=== PATIENT | female | born 1935 | race Caucasian/White ===

== ENCOUNTER 2017-03-28 10:40 | Emergency (ER) | payer OTHER ==
[2017-03-28] MEDS: ALBUTEROL 0.083% (NEB) 2.5 MG/3 ML AMP NEB (16:21)
[2017-03-28] MEDS: IPRATROPIUM (NEB) 0.5 MG/2.5 ML AMP NEB (16:21)
[2017-03-28 16:49] LABS: ADD MAN DIFF? NO
[2017-03-28 16:51] LABS: BASOPHIL # 0.1 10^3/ul (0.0-0.1); BASOPHILS % 0.6 % (0.0-2.0); EOSINOPHILS # 0.2 10^3/ul (0.0-0.5); EOSINOPHILS % 1.7 % (0.0-7.0); HEMATOCRIT 43.9 % (37.0-47.0); HEMOGLOBIN 14.3 g/dl (12.0-16.0); LYMPHOCYTES % 22.1 % (15.0-51.0); MEAN CORPUSCULAR HEMOGLOBIN 28.9 pg (29.0-33.0); MEAN CORPUSCULAR HGB CONC 32.6 g/dl (32.0-37.0); MEAN CORPUSCULAR VOLUME 88.7 fl (82.0-101.0); MEAN PLATELET VOLUME 9.8 fl (7.4-10.4); MONOCYTE # 1.3 10^3/ul (0.3-0.9); MONOCYTES % 14.8 % (0.0-11.0); NEUTROPHIL # 5.5 10^3/ul (1.6-7.5); NEUTROPHILS % 60.2 % (39.0-77.0); PLATELET COUNT 316 10^3/UL (140-415); RED BLOOD COUNT 4.95 10^6/ul (4.20-5.40); RED CELL DISTRIBUTION WIDTH 14.5 % (11.5-14.5)
[2017-03-28 16:51] LABS: WHITE BLOOD COUNT 9.1 10^3/ul (4.8-10.8)
[2017-03-28] MEDS: METHYLPREDNISOLONE 125 MG INJ IV (16:51)
[2017-03-28] MEDS: SODIUM CHLORIDE 0.9% 1L BAG IV* (16:52)
[2017-03-28 17:15] LABS: INR 1.06; PARTIAL THROMBOPLASTIN TIME 28.9 Sec (25.0-35.0); PROTIME 13.9 Sec (11.9-14.9); PT RATIO 1.1
[2017-03-28 17:17] LABS: ALANINE AMINOTRANSFERASE 32 IU/L (13-69); ALBUMIN 4.9 g/dl (3.3-4.9); ALBUMIN/GLOBULIN RATIO 1.36; ALKALINE PHOSPHATASE 106 IU/L (42-121); ANION GAP 19 (8-16); ASPARTATE AMINO TRANSFERASE 32 IU/L (15-46); BILIRUBIN,INDIRECT 0.4 mg/dl (0-1.1); BILIRUBIN,TOTAL 0.4 mg/dl (0.2-1.3); BLOOD UREA NITROGEN 18 mg/dl (7-20); CALCIUM 9.9 mg/dl (8.4-10.2); CARBON DIOXIDE 29 mmol/L (21-31); CHLORIDE 98 mmol/L (97-110); CREATININE 0.88 mg/dl (0.44-1.00); GLUCOSE 102 mg/dl (70-220); POTASSIUM 4.4 mmol/L (3.5-5.1); SODIUM 142 mmol/L (135-144); TOTAL PROTEIN 8.5 g/dl (6.1-8.1)
[2017-03-28 17:27] LABS: B-TYPE NATRIURETIC PEPTIDE 2280 PG/ML (0-450); TROPONIN-I 0.015 ng/ml (0.00-0.12)
== END 2017-03-28 17:57 | disposition home or self-care (01) ==
LOC: E/R 10:40
DX: J45.901 Unspecified asthma with (acute) exacerbation (principal); R06.02 Shortness of breath; Z86.79 Personal history of other diseases of the circulatory system
CPT/HCPCS: 36415; 71045; 80053; 83605; 83880; 84484; 85025; 85610; 85730; 87040; 93005; 94664; 96374; 99285-25

== ENCOUNTER 2017-08-27 21:50 | Inpatient (IN) | payer OTHER ==
[2017-08-27] MEDS: SODIUM CHLORIDE 0.9% 1L BAG IV* (23:07)
[2017-08-27] MEDS: ACETAMINOPHEN 325 MG TAB PO (23:08)
[2017-08-27] MEDS: DILTIAZEM 25 MG INJ IV (23:08)
[2017-08-27 23:26] LABS: ADD MAN DIFF? NO
[2017-08-27 23:28] LABS: BASOPHILS % 0.3 % (0.0-2.0); HEMATOCRIT 39.2 % (37.0-47.0); HEMOGLOBIN 13.1 g/dl (12.0-16.0); LYMPHOCYTES # 0.8 10^3/ul (0.8-2.9); LYMPHOCYTES % 6.9 % (15.0-51.0); MEAN CORPUSCULAR HGB CONC 33.4 g/dl (32.0-37.0); MEAN CORPUSCULAR VOLUME 92.7 fl (82.0-101.0); MEAN PLATELET VOLUME 10.2 fl (7.4-10.4); MONOCYTE # 1.4 10^3/ul (0.3-0.9); MONOCYTES % 12.1 % (0.0-11.0); NEUTROPHIL # 9.5 10^3/ul (1.6-7.5); NEUTROPHILS % 80.3 % (39.0-77.0); PLATELET COUNT 229 10^3/UL (140-415); RED BLOOD COUNT 4.23 10^6/ul (4.20-5.40); RED CELL DISTRIBUTION WIDTH 13.8 % (11.5-14.5)
[2017-08-27 23:28] LABS: WHITE BLOOD COUNT 11.9 10^3/ul (4.8-10.8)
[2017-08-27 23:46] LABS: LACTIC ACID 1.5 mmol/L (0.5-2.0)
[2017-08-27 23:48] LABS: ALANINE AMINOTRANSFERASE 38 IU/L (13-69); ALBUMIN 4.1 g/dl (3.3-4.9); ALBUMIN/GLOBULIN RATIO 1.36; ALKALINE PHOSPHATASE 82 IU/L (42-121); ANION GAP 14 (8-16); ASPARTATE AMINO TRANSFERASE 28 IU/L (15-46); BILIRUBIN,INDIRECT 0.8 mg/dl (0-1.1); BILIRUBIN,TOTAL 0.8 mg/dl (0.2-1.3); BLOOD UREA NITROGEN 19 mg/dl (7-20); CALCIUM 9.5 mg/dl (8.4-10.2); CARBON DIOXIDE 24 mmol/L (21-31); CHLORIDE 104 mmol/L (97-110); CREATININE 0.95 mg/dl (0.44-1.00); GLUCOSE 139 mg/dl (70-220); INR 1.19; POTASSIUM 4.5 mmol/L (3.5-5.1); PROTIME 15.3 Sec (11.9-14.9); PT RATIO 1.2; SODIUM 137 mmol/L (135-144); TOTAL PROTEIN 7.1 g/dl (6.1-8.1)
[2017-08-27 23:55] LABS: PARTIAL THROMBOPLASTIN TIME 33.2 Sec (25.0-35.0)
[2017-08-27 23:59] LABS: TROPONIN-I 0.035 ng/ml (0.000-0.120)
[2017-08-28] MEDS: PIPER-TAZO 3.375 GM IV (PMX) 100 ML IVPB ×3 (01:51→18:48)
[2017-08-28] MEDS ORDERED: NITROGLYCERIN (SL) 0.4 MG TAB SL (02:00)
[2017-08-28] MEDS ORDERED: ACETAMINOPHEN 325 MG TAB PO (02:00)
[2017-08-28] MEDS ORDERED: NACL 0.9% 3 ML SYG IV (02:00)
[2017-08-28] MEDS ORDERED: ONDANSETRON 4 MG INJ IV (02:00)
[2017-08-28] MEDS ORDERED: morphine 2 MG INJ IV (02:00)
[2017-08-28] MEDS: metroNIDAZOLE 500 MG/NS (PMX) 100 ML IVPB (02:26)
[2017-08-28 02:42] LABS: ADD UMIC YES; UR ASCORBIC ACID NEGATIVE (NEGATIVE); UR BACTERIA MANY /HPF (NONE SEEN); UR BILIRUBIN (Dip) NEGATIVE (NEGATIVE); UR BLOOD (Dip) 2+ mg/dL (NEGATIVE); UR CLARITY CLEAR (CLEAR); UR COLOR YELLOW (YELLOW); UR GLUCOSE (Dip) NEGATIVE (NEGATIVE); UR KETONES (Dip) NEGATIVE (NEGATIVE); UR LEUKOCYTE ESTERASE (Dip) NEGATIVE Leu/ul (NEGATIVE); UR NITRITE (Dip) POSITIVE (NEGATIVE); UR RBC 2 /HPF (0-5); UR SPECIFIC GRAVITY (Dip) 1.004 (1.003-1.030); UR TOTAL PROTEIN (Dip) NEGATIVE (NEGATIVE); UR UROBILINOGEN (Dip) NEGATIVE (NEGATIVE); UR WBC 3 /HPF (0-5)
[2017-08-28 03:34] LABS: ADD MAN DIFF? NO
[2017-08-28 04:04] LABS: HEMOGLOBIN A1C 5.8 % (0-5.9)
[2017-08-28 04:04] LABS: ALANINE AMINOTRANSFERASE 33 IU/L (13-69); ALBUMIN 3.8 g/dl (3.3-4.9); ALBUMIN/GLOBULIN RATIO 1.31; ALKALINE PHOSPHATASE 68 IU/L (42-121); ANION GAP 10 (8-16); ASPARTATE AMINO TRANSFERASE 25 IU/L (15-46); BILIRUBIN,INDIRECT 0.9 mg/dl (0-1.1); BILIRUBIN,TOTAL 0.9 mg/dl (0.2-1.3); BLOOD UREA NITROGEN 16 mg/dl (7-20); CALCIUM 8.4 mg/dl (8.4-10.2); CARBON DIOXIDE 27 mmol/L (21-31); CHLORIDE 110 mmol/L (97-110); CHOL/HDL RATIO 2.7 RATIO; CHOLESTEROL 135 mg/dl (100-200); GLUCOSE 123 mg/dl (70-220); HDL CHOLESTEROL 50 mg/dl (33-92); LDL CHOLESTEROL,CALCULATED 69 mg/dl; POTASSIUM 4.3 mmol/L (3.5-5.1); SODIUM 143 mmol/L (135-144); TOTAL PROTEIN 6.7 g/dl (6.1-8.1); TRIGLYCERIDES 82 mg/dl (0-149)
[2017-08-28 04:05] LABS: LACTIC ACID 0.9 mmol/L (0.5-2.0); WHITE BLOOD COUNT 10.1 10^3/ul (4.8-10.8)
[2017-08-28 04:05] LABS: BASOPHILS % 0.2 % (0.0-2.0); CREATINE KINASE 79 IU/L (23-200); HEMATOCRIT 39.3 % (37.0-47.0); HEMOGLOBIN 12.7 g/dl (12.0-16.0); LYMPHOCYTES # 1.1 10^3/ul (0.8-2.9); LYMPHOCYTES % 11.2 % (15.0-51.0); MEAN CORPUSCULAR HEMOGLOBIN 31.1 pg (29.0-33.0); MEAN CORPUSCULAR HGB CONC 32.3 g/dl (32.0-37.0); MEAN CORPUSCULAR VOLUME 96.1 fl (82.0-101.0); MEAN PLATELET VOLUME 9.7 fl (7.4-10.4); MONOCYTE # 1.1 10^3/ul (0.3-0.9); MONOCYTES % 10.8 % (0.0-11.0); NEUTROPHIL # 7.9 10^3/ul (1.6-7.5); NEUTROPHILS % 77.6 % (39.0-77.0); PLATELET COUNT 206 10^3/UL (140-415); RED BLOOD COUNT 4.09 10^6/ul (4.20-5.40); RED CELL DISTRIBUTION WIDTH 13.6 % (11.5-14.5)
[2017-08-28 04:18] LABS: CK INDEX 1.7; CK-MB 1.33 ng/ml (0.0-2.4); TROPONIN-I 0.093 ng/ml (0.000-0.120)
[2017-08-28] MEDS: SOD CHLORIDE 0.9% 1,000 ML IV (05:23)
[2017-08-28] MEDS: METOPROLOL 25 MG TAB PO ×3 (05:24→21:43)
[2017-08-28 08:14] LABS: CREATINE KINASE 83 IU/L (23-200)
[2017-08-28 08:26] LABS: CK INDEX 2.4; CK-MB 1.98 ng/ml (0.0-2.4); TROPONIN-I 0.089 ng/ml (0.000-0.120)
[2017-08-28] MEDS ORDERED: HYDROCHLOROTHIAZIDE 25 MG TAB PO (09:00)
[2017-08-28] MEDS ORDERED: APIXABAN 5 MG TABLET PO (09:00)
[2017-08-28] MEDS: BENAZEPRIL 40 MG TAB PO (10:00)
[2017-08-28] MEDS: LOPERAMIDE 2 MG CAP PO (10:01)
[2017-08-28] MEDS: FLUTICASONE 0.05% 16 GM NAS SPRAY NASAL ×2 (10:01→21:43)
[2017-08-28] MEDS: FUROSEMIDE 20 MG INJ IV (11:44)
[2017-08-28] MEDS: metroNIDAZOLE 500 MG TAB PO ×2 (12:27→21:56)
[2017-08-28] MEDS ORDERED: morphine LIQ (10 MG/5 ML) CUP PO (15:00)
[2017-08-28] MEDS: BISACODYL (EC) 5 MG TAB PO (15:30)
[2017-08-28 16:12] LABS: OCCULT BLOOD STOOL POSITIVE (NEGATIVE)
[2017-08-28] MEDS: MAGNESIUM CITRATE 300 ML BTL PO (17:00)
[2017-08-28] MEDS: POLYETHYLENE GLYCOL 3350 119 GM POWDER PO (18:48)
[2017-08-28] MEDS: MONTELUKAST 10 MG TAB PO (21:42)
[2017-08-29] MEDS: PIPER-TAZO 3.375 GM IV (PMX) 100 ML IVPB ×3 (00:55→12:31)
[2017-08-29] MEDS: metroNIDAZOLE 500 MG TAB PO (06:12)
[2017-08-29] MEDS: POLYETHYLENE GLYCOL 3350 119 GM POWDER PO (06:12)
[2017-08-29 06:33] LABS: MAGNESIUM 1.7 mg/dl (1.7-2.5)
[2017-08-29] MEDS: BISACODYL (EC) 5 MG TAB PO (08:00)
[2017-08-29] MEDS: METOPROLOL 25 MG TAB PO ×2 (09:00→20:32)
[2017-08-29] MEDS: BENAZEPRIL 40 MG TAB PO (09:00)
[2017-08-29] MEDS: FUROSEMIDE 40 MG INJ IV (09:50)
[2017-08-29] MEDS: FLUTICASONE 0.05% 16 GM NAS SPRAY NASAL ×2 (09:50→20:29)
[2017-08-29] MEDS: ALBUTEROL/IPRATROPIUM (NEB) 3 ML AMP HHN (12:33)
[2017-08-29 14:01] LABS: ADD MAN DIFF? NO
[2017-08-29 14:09] LABS: BASOPHILS % 0.4 % (0.0-2.0); EOSINOPHILS % 0.2 % (0.0-7.0); HEMATOCRIT 39.5 % (37.0-47.0); HEMOGLOBIN 12.6 g/dl (12.0-16.0); LYMPHOCYTES # 1.1 10^3/ul (0.8-2.9); LYMPHOCYTES % 12.4 % (15.0-51.0); MEAN CORPUSCULAR HEMOGLOBIN 30.8 pg (29.0-33.0); MEAN CORPUSCULAR HGB CONC 31.9 g/dl (32.0-37.0); MEAN CORPUSCULAR VOLUME 96.6 fl (82.0-101.0); MEAN PLATELET VOLUME 9.5 fl (7.4-10.4); MONOCYTE # 0.7 10^3/ul (0.3-0.9); MONOCYTES % 8.4 % (0.0-11.0); NEUTROPHIL # 6.7 10^3/ul (1.6-7.5); PLATELET COUNT 221 10^3/UL (140-415); RED BLOOD COUNT 4.09 10^6/ul (4.20-5.40); RED CELL DISTRIBUTION WIDTH 13.5 % (11.5-14.5)
[2017-08-29 14:09] LABS: WHITE BLOOD COUNT 8.6 10^3/ul (4.8-10.8)
[2017-08-29 14:27] LABS: ANION GAP 13 (8-16); BLOOD UREA NITROGEN 15 mg/dl (7-20); CALCIUM 8.9 mg/dl (8.4-10.2); CARBON DIOXIDE 24 mmol/L (21-31); CHLORIDE 111 mmol/L (97-110); CREATININE 0.75 mg/dl (0.44-1.00); GLUCOSE 83 mg/dl (70-220); POTASSIUM 3.8 mmol/L (3.5-5.1); SODIUM 144 mmol/L (135-144)
[2017-08-29] MEDS: MONTELUKAST 10 MG TAB PO (20:29)
[2017-08-29] MEDS: traMADol 50 MG TAB PO (23:44)
[2017-08-29] MEDS: SOD CHLORIDE 0.9% 500 ML IV (23:44)
[2017-08-30] MEDS: FLUTICASONE 0.05% 16 GM NAS SPRAY NASAL (08:59)
[2017-08-30] MEDS: BENAZEPRIL 40 MG TAB PO (09:00)
[2017-08-30] MEDS: METOPROLOL 25 MG TAB PO (09:01)
[2017-08-30] MEDS: FUROSEMIDE 20 MG TAB PO (09:03)
== END 2017-08-30 14:10 | disposition home or self-care (01) | DRG 391 ==
LOC: E/R 21:50 → TEL 08-28 01:23
PROC: 0DBK8ZX Excision of Ascending Colon, Via Natural or Artificial Opening Endoscopic, Diagnostic (ICD-10-PCS; principal; 2017-08-29 15:20)
PROC: 0DBN8ZX Excision of Sigmoid Colon, Via Natural or Artificial Opening Endoscopic, Diagnostic (ICD-10-PCS; 2017-08-29 15:20)
PROC: 0DBM8ZX Excision of Descending Colon, Via Natural or Artificial Opening Endoscopic, Diagnostic (ICD-10-PCS; 2017-08-29 15:20)
DX: A09 Infectious gastroenteritis and colitis, unspecified (principal); I50.23 Acute on chronic systolic (congestive) heart failure; I42.9 Cardiomyopathy, unspecified; I48.2 Chronic atrial fibrillation; I11.0 Hypertensive heart disease with heart failure; J45.909 Unspecified asthma, uncomplicated; N83.202 Unspecified ovarian cyst, left side; N83.201 Unspecified ovarian cyst, right side; K57.30 Diverticulosis of large intestine without perforation or abscess without bleeding; Z79.02 Long term (current) use of antithrombotics/antiplatelets
CPT/HCPCS: 36415; 71045; 74176; 80048; 80053; 80061; 81001; 82270; 82378; 82550; 82553; 83036; 83605; 83735; 84443; 84484; 85025; 85610; 85730; 86674; 87040; 87045; 87075; 87086; 87177; 87205; 88305; 93005; 93306; 94664; 96365; 96375; 99291-25

== ENCOUNTER 2017-09-04 10:42 | Inpatient (IN) | payer OTHER ==
[2017-09-04] MEDS: morphine 4 MG/ML VIAL IV (11:24)
[2017-09-04] MEDS: ONDANSETRON 4 MG INJ IV (11:24)
[2017-09-04] MEDS: NITROGLYCERIN 2% 1 GM OINT PKT TD (11:25)
[2017-09-04] MEDS: LIDOCAINE/MYLANTA 40 ML BTL PO (11:25)
[2017-09-04 11:40] LABS: ADD MAN DIFF? NO
[2017-09-04 11:41] LABS: WHITE BLOOD COUNT 6.6 10^3/ul (4.8-10.8)
[2017-09-04 11:41] LABS: BASOPHILS % 0.6 % (0.0-2.0); EOSINOPHILS # 0.1 10^3/ul (0.0-0.5); EOSINOPHILS % 0.9 % (0.0-7.0); HEMATOCRIT 38.3 % (37.0-47.0); HEMOGLOBIN 12.4 g/dl (12.0-16.0); LYMPHOCYTES # 1.1 10^3/ul (0.8-2.9); LYMPHOCYTES % 15.9 % (15.0-51.0); MEAN CORPUSCULAR HEMOGLOBIN 30.4 pg (29.0-33.0); MEAN CORPUSCULAR HGB CONC 32.4 g/dl (32.0-37.0); MEAN CORPUSCULAR VOLUME 93.9 fl (82.0-101.0); MEAN PLATELET VOLUME 9.5 fl (7.4-10.4); MONOCYTE # 0.9 10^3/ul (0.3-0.9); MONOCYTES % 14.2 % (0.0-11.0); NEUTROPHIL # 4.4 10^3/ul (1.6-7.5); NEUTROPHILS % 66.6 % (39.0-77.0); NUCLEATED RED BLOOD CELLS% 0.6 /100WBC (0.0-0.0); PLATELET COUNT 326 10^3/UL (140-415); RED BLOOD COUNT 4.08 10^6/ul (4.20-5.40)
[2017-09-04 12:08] LABS: INR 1.41; PARTIAL THROMBOPLASTIN TIME 28.7 Sec (25.0-35.0); PROTIME 17.5 Sec (11.9-14.9); PT RATIO 1.4
[2017-09-04 12:14] LABS: ALANINE AMINOTRANSFERASE 100 IU/L (13-69); ALBUMIN 3.5 g/dl (3.3-4.9); ALBUMIN/GLOBULIN RATIO 1.29; ALKALINE PHOSPHATASE 101 IU/L (42-121); ANION GAP 12 (8-16); ASPARTATE AMINO TRANSFERASE 81 IU/L (15-46); BILIRUBIN,INDIRECT 0.4 mg/dl (0-1.1); BILIRUBIN,TOTAL 0.4 mg/dl (0.2-1.3); BLOOD UREA NITROGEN 11 mg/dl (7-20); CALCIUM 8.6 mg/dl (8.4-10.2); CARBON DIOXIDE 27 mmol/L (21-31); CHLORIDE 105 mmol/L (97-110); CREATININE 0.76 mg/dl (0.44-1.00); GLUCOSE 112 mg/dl (70-220); POTASSIUM 4.2 mmol/L (3.5-5.1); SODIUM 140 mmol/L (135-144); TOTAL PROTEIN 6.2 g/dl (6.1-8.1)
[2017-09-04 12:26] LABS: B-TYPE NATRIURETIC PEPTIDE 14700 PG/ML (0-450); TROPONIN-I 0.014 ng/ml (0.000-0.120)
[2017-09-04] MEDS ORDERED: ONDANSETRON 4 MG INJ IV ×2 (13:30→14:00)
[2017-09-04] MEDS ORDERED: ACETAMINOPHEN 325 MG TAB PO (13:30)
[2017-09-04] MEDS ORDERED: NACL 0.9% 3 ML SYG IV (14:00)
[2017-09-04] MEDS ORDERED: NITROGLYCERIN (SL) 0.4 MG TAB SL (14:00)
[2017-09-04] MEDS ORDERED: FUROSEMIDE 40 MG INJ IV (14:00)
[2017-09-04] MEDS ORDERED: DOCUSATE SODIUM 100 MG CAP PO ×2 (14:00)
[2017-09-04] MEDS ORDERED: morphine 2 MG INJ IV (14:00)
[2017-09-04] MEDS: FUROSEMIDE 40 MG INJ IV (15:50)
[2017-09-04] MEDS: METOPROLOL 100 MG TAB PO ×2 (15:51→23:19)
[2017-09-04] MEDS: FAMOTIDINE 20 MG TAB PO (15:51)
[2017-09-04 16:13] LABS: CREATINE KINASE 46 IU/L (23-200)
[2017-09-04 16:26] LABS: CK INDEX 2.4; CK-MB 1.09 ng/ml (0.0-2.4)
[2017-09-04 16:28] LABS: TROPONIN-I < 0.012 ng/ml (0.000-0.120)
[2017-09-04] MEDS: ACETAMINOPHEN 325 MG TAB PO (20:11)
[2017-09-04] MEDS: APIXABAN 5 MG TABLET PO (20:19)
[2017-09-04] MEDS ORDERED: METOPROLOL 25 MG TAB PO (21:00)
[2017-09-04] MEDS: ALBUTEROL HFA 8 GM INHALER INH (21:00)
[2017-09-04 22:21] LABS: CREATINE KINASE 42 IU/L (23-200)
[2017-09-04 22:33] LABS: CK-MB 1.28 ng/ml (0.0-2.4)
[2017-09-04 22:35] LABS: TROPONIN-I < 0.012 ng/ml (0.000-0.120)
[2017-09-04] MEDS: MONTELUKAST 10 MG TAB PO (23:18)
[2017-09-05] MEDS: ALBUTEROL HFA 8 GM INHALER INH ×6 (01:00→21:05)
[2017-09-05] MEDS: FUROSEMIDE 40 MG INJ IV ×2 (05:36→18:32)
[2017-09-05 07:13] LABS: ADD MAN DIFF? NO
[2017-09-05 07:16] LABS: WHITE BLOOD COUNT 5.3 10^3/ul (4.8-10.8)
[2017-09-05 07:16] LABS: BASOPHILS % 0.4 % (0.0-2.0); EOSINOPHILS # 0.1 10^3/ul (0.0-0.5); EOSINOPHILS % 2.1 % (0.0-7.0); HEMATOCRIT 37.1 % (37.0-47.0); HEMOGLOBIN 11.7 g/dl (12.0-16.0); LYMPHOCYTES # 1.4 10^3/ul (0.8-2.9); LYMPHOCYTES % 26.9 % (15.0-51.0); MEAN CORPUSCULAR HEMOGLOBIN 30.2 pg (29.0-33.0); MEAN CORPUSCULAR HGB CONC 31.5 g/dl (32.0-37.0); MEAN CORPUSCULAR VOLUME 95.6 fl (82.0-101.0); MEAN PLATELET VOLUME 9.7 fl (7.4-10.4); MONOCYTE # 0.7 10^3/ul (0.3-0.9); MONOCYTES % 13.2 % (0.0-11.0); NEUTROPHILS % 56.3 % (39.0-77.0); NUCLEATED RED BLOOD CELLS% 0.8 /100WBC (0.0-0.0); PLATELET COUNT 312 10^3/UL (140-415); RED BLOOD COUNT 3.88 10^6/ul (4.20-5.40); RED CELL DISTRIBUTION WIDTH 14.2 % (11.5-14.5)
[2017-09-05 07:44] LABS: HEMOGLOBIN A1C 5.9 % (0-5.9)
[2017-09-05 07:52] LABS: ALANINE AMINOTRANSFERASE 128 IU/L (13-69); ALBUMIN 3.4 g/dl (3.3-4.9); ALBUMIN/GLOBULIN RATIO 1.25; ALKALINE PHOSPHATASE 89 IU/L (42-121); ANION GAP 15 (8-16); ASPARTATE AMINO TRANSFERASE 124 IU/L (15-46); BILIRUBIN,INDIRECT 0.4 mg/dl (0-1.1); BILIRUBIN,TOTAL 0.4 mg/dl (0.2-1.3); BLOOD UREA NITROGEN 16 mg/dl (7-20); CALCIUM 8.7 mg/dl (8.4-10.2); CARBON DIOXIDE 32 mmol/L (21-31); CHLORIDE 96 mmol/L (97-110); CHOL/HDL RATIO 3.4 RATIO; CHOLESTEROL 96 mg/dl (100-200); CREATININE 0.82 mg/dl (0.44-1.00); GLUCOSE 93 mg/dl (70-220); HDL CHOLESTEROL 28 mg/dl (33-92); LDL CHOLESTEROL,CALCULATED 50 mg/dl; MAGNESIUM 1.5 mg/dl (1.7-2.5); PHOSPHORUS 4.2 mg/dl (2.5-4.9); POTASSIUM 4.3 mmol/L (3.5-5.1); SODIUM 139 mmol/L (135-144); TOTAL PROTEIN 6.1 g/dl (6.1-8.1); TRIGLYCERIDES 91 mg/dl (0-149)
[2017-09-05] MEDS ORDERED: FUROSEMIDE 40 MG INJ IV (09:00)
[2017-09-05] MEDS: METOPROLOL 100 MG TAB PO ×2 (09:11→21:06)
[2017-09-05] MEDS: ACETAMINOPHEN 325 MG TAB PO ×2 (09:11→22:58)
[2017-09-05] MEDS: BENAZEPRIL 40 MG TAB PO (09:12)
[2017-09-05] MEDS: APIXABAN 5 MG TABLET PO ×2 (09:12→21:05)
[2017-09-05] MEDS: FAMOTIDINE 20 MG TAB PO (09:12)
[2017-09-05] MEDS: MAGNESIUM SULFATE 4 GM/100 ML 100 ML IVPB (12:55)
[2017-09-05] MEDS ORDERED: morphine LIQ (10 MG/5 ML) CUP PO (16:00)
[2017-09-05] MEDS: PANTOPRAZOLE (EC) 40 MG TAB PO (18:32)
[2017-09-05] MEDS: MONTELUKAST 10 MG TAB PO (21:06)
[2017-09-06] MEDS: ALBUTEROL HFA 8 GM INHALER INH ×6 (01:00→21:56)
[2017-09-06] MEDS: FUROSEMIDE 40 MG INJ IV (06:05)
[2017-09-06] MEDS: PANTOPRAZOLE (EC) 40 MG TAB PO ×2 (06:05→17:26)
[2017-09-06 06:10] LABS: ADD MAN DIFF? NO
[2017-09-06 06:25] LABS: BASOPHILS % 0.5 % (0.0-2.0); EOSINOPHILS # 0.1 10^3/ul (0.0-0.5); HEMATOCRIT 36.7 % (37.0-47.0); HEMOGLOBIN 11.8 g/dl (12.0-16.0); LYMPHOCYTES # 1.4 10^3/ul (0.8-2.9); LYMPHOCYTES % 24.7 % (15.0-51.0); MEAN CORPUSCULAR HEMOGLOBIN 30.6 pg (29.0-33.0); MEAN CORPUSCULAR HGB CONC 32.2 g/dl (32.0-37.0); MEAN CORPUSCULAR VOLUME 95.3 fl (82.0-101.0); MEAN PLATELET VOLUME 9.7 fl (7.4-10.4); MONOCYTE # 0.8 10^3/ul (0.3-0.9); MONOCYTES % 14.3 % (0.0-11.0); NEUTROPHIL # 3.2 10^3/ul (1.6-7.5); NEUTROPHILS % 57.6 % (39.0-77.0); NUCLEATED RED BLOOD CELLS # 0.1 10^3/ul (0.0-0.0); NUCLEATED RED BLOOD CELLS% 1.1 /100WBC (0.0-0.0); PLATELET COUNT 316 10^3/UL (140-415); RED BLOOD COUNT 3.85 10^6/ul (4.20-5.40)
[2017-09-06 06:25] LABS: WHITE BLOOD COUNT 5.6 10^3/ul (4.8-10.8)
[2017-09-06 06:44] LABS: ANION GAP 12 (8-16); BLOOD UREA NITROGEN 23 mg/dl (7-20); CALCIUM 8.5 mg/dl (8.4-10.2); CARBON DIOXIDE 35 mmol/L (21-31); CHLORIDE 98 mmol/L (97-110); CREATININE 0.98 mg/dl (0.44-1.00); GLUCOSE 92 mg/dl (70-220); POTASSIUM 4.6 mmol/L (3.5-5.1); SODIUM 140 mmol/L (135-144)
[2017-09-06] MEDS: APIXABAN 5 MG TABLET PO ×2 (09:22→20:12)
[2017-09-06] MEDS: METOPROLOL 100 MG TAB PO ×2 (09:22→20:13)
[2017-09-06] MEDS: BENAZEPRIL 40 MG TAB PO (09:25)
[2017-09-06] MEDS: FUROSEMIDE 40 MG TAB PO (12:47)
[2017-09-06] MEDS: MONTELUKAST 10 MG TAB PO (20:13)
[2017-09-07] MEDS: ALBUTEROL HFA 8 GM INHALER INH ×6 (01:00→21:32)
[2017-09-07] MEDS: PANTOPRAZOLE (EC) 40 MG TAB PO ×2 (05:06→17:34)
[2017-09-07 07:37] LABS: ADD MAN DIFF? NO
[2017-09-07 07:42] LABS: WHITE BLOOD COUNT 6.9 10^3/ul (4.8-10.8)
[2017-09-07 07:42] LABS: BASOPHILS % 0.6 % (0.0-2.0); EOSINOPHILS # 0.1 10^3/ul (0.0-0.5); EOSINOPHILS % 1.6 % (0.0-7.0); HEMATOCRIT 41.6 % (37.0-47.0); HEMOGLOBIN 13.1 g/dl (12.0-16.0); LYMPHOCYTES # 1.6 10^3/ul (0.8-2.9); LYMPHOCYTES % 23.3 % (15.0-51.0); MEAN CORPUSCULAR HGB CONC 31.5 g/dl (32.0-37.0); MEAN CORPUSCULAR VOLUME 95.4 fl (82.0-101.0); MEAN PLATELET VOLUME 9.5 fl (7.4-10.4); MONOCYTES % 14.4 % (0.0-11.0); NEUTROPHIL # 4.1 10^3/ul (1.6-7.5); NEUTROPHILS % 59.2 % (39.0-77.0); PLATELET COUNT 359 10^3/UL (140-415); RED BLOOD COUNT 4.36 10^6/ul (4.20-5.40); RED CELL DISTRIBUTION WIDTH 13.8 % (11.5-14.5)
[2017-09-07 08:08] LABS: BLOOD UREA NITROGEN 21 mg/dl (7-20); CALCIUM 8.9 mg/dl (8.4-10.2); CHLORIDE 93 mmol/L (97-110); CREATININE 0.92 mg/dl (0.44-1.00); GLUCOSE 96 mg/dl (70-220); POTASSIUM 4.9 mmol/L (3.5-5.1); SODIUM 141 mmol/L (135-144)
[2017-09-07 08:24] LABS: ANION GAP 14 (8-16); CARBON DIOXIDE 39 mmol/L (21-31)
[2017-09-07] MEDS: APIXABAN 5 MG TABLET PO ×2 (08:49→21:27)
[2017-09-07] MEDS: FUROSEMIDE 40 MG TAB PO (08:49)
[2017-09-07] MEDS: BENAZEPRIL 40 MG TAB PO (08:49)
[2017-09-07] MEDS: METOPROLOL 100 MG TAB PO ×2 (08:50→21:27)
[2017-09-07] MEDS: ACETAMINOPHEN 325 MG TAB PO (11:06)
[2017-09-07] MEDS: MONTELUKAST 10 MG TAB PO (21:27)
[2017-09-08] MEDS: ALBUTEROL HFA 8 GM INHALER INH ×4 (02:28→13:40)
[2017-09-08] MEDS: PANTOPRAZOLE (EC) 40 MG TAB PO (05:38)
[2017-09-08 07:04] LABS: ADD MAN DIFF? NO
[2017-09-08 07:13] LABS: WHITE BLOOD COUNT 6.3 10^3/ul (4.8-10.8)
[2017-09-08 07:13] LABS: BASOPHILS % 0.5 % (0.0-2.0); EOSINOPHILS # 0.2 10^3/ul (0.0-0.5); EOSINOPHILS % 2.4 % (0.0-7.0); HEMATOCRIT 39.9 % (37.0-47.0); HEMOGLOBIN 12.8 g/dl (12.0-16.0); LYMPHOCYTES # 1.5 10^3/ul (0.8-2.9); LYMPHOCYTES % 24.1 % (15.0-51.0); MEAN CORPUSCULAR HEMOGLOBIN 30.6 pg (29.0-33.0); MEAN CORPUSCULAR HGB CONC 32.1 g/dl (32.0-37.0); MEAN CORPUSCULAR VOLUME 95.5 fl (82.0-101.0); MEAN PLATELET VOLUME 9.8 fl (7.4-10.4); MONOCYTE # 0.8 10^3/ul (0.3-0.9); MONOCYTES % 12.5 % (0.0-11.0); NEUTROPHIL # 3.8 10^3/ul (1.6-7.5); NEUTROPHILS % 59.9 % (39.0-77.0); PLATELET COUNT 350 10^3/UL (140-415); RED BLOOD COUNT 4.18 10^6/ul (4.20-5.40); RED CELL DISTRIBUTION WIDTH 14.3 % (11.5-14.5)
[2017-09-08 07:33] LABS: ANION GAP 11 (8-16); BLOOD UREA NITROGEN 24 mg/dl (7-20); CALCIUM 8.7 mg/dl (8.4-10.2); CARBON DIOXIDE 39 mmol/L (21-31); CHLORIDE 94 mmol/L (97-110); CREATININE 0.89 mg/dl (0.44-1.00); GLUCOSE 126 mg/dl (70-220); POTASSIUM 4.4 mmol/L (3.5-5.1); SODIUM 140 mmol/L (135-144)
[2017-09-08] MEDS: APIXABAN 5 MG TABLET PO (09:40)
[2017-09-08] MEDS: FUROSEMIDE 40 MG TAB PO (10:12)
[2017-09-08] MEDS: METOPROLOL 100 MG TAB PO (10:12)
[2017-09-08] MEDS: BENAZEPRIL 40 MG TAB PO (10:12)
== END 2017-09-08 17:14 | disposition home or self-care (01) | DRG 391 ==
LOC: E/R 10:42 → MS4 13:13
DX: K21.9 Gastro-esophageal reflux disease without esophagitis (principal); I50.23 Acute on chronic systolic (congestive) heart failure; I42.9 Cardiomyopathy, unspecified; I11.0 Hypertensive heart disease with heart failure; I48.2 Chronic atrial fibrillation; J45.909 Unspecified asthma, uncomplicated; Z79.01 Long term (current) use of anticoagulants
CPT/HCPCS: 36415; 71045; 80048; 80053; 80061; 82550; 82553; 83036; 83735; 83880; 84100; 84443; 84484; 85025; 85610; 85730; 87081; 93005; 96374; 96375; 97162; 99285-25

== ENCOUNTER 2017-10-02 15:48 | Inpatient (IN) | payer OTHER ==
[2017-10-02 18:12] LABS: ADD MAN DIFF? NO
[2017-10-02 18:18] LABS: WHITE BLOOD COUNT 6.2 10^3/ul (4.8-10.8)
[2017-10-02 18:18] LABS: BASOPHILS % 0.5 % (0.0-2.0); EOSINOPHILS # 0.1 10^3/ul (0.0-0.5); EOSINOPHILS % 0.8 % (0.0-7.0); HEMATOCRIT 42.2 % (37.0-47.0); HEMOGLOBIN 13.4 g/dl (12.0-16.0); LYMPHOCYTES # 1.4 10^3/ul (0.8-2.9); LYMPHOCYTES % 22.8 % (15.0-51.0); MEAN CORPUSCULAR HEMOGLOBIN 29.1 pg (29.0-33.0); MEAN CORPUSCULAR HGB CONC 31.8 g/dl (32.0-37.0); MEAN CORPUSCULAR VOLUME 91.5 fl (82.0-101.0); MEAN PLATELET VOLUME 9.3 fl (7.4-10.4); MONOCYTE # 0.8 10^3/ul (0.3-0.9); MONOCYTES % 12.5 % (0.0-11.0); NEUTROPHIL # 3.9 10^3/ul (1.6-7.5); NEUTROPHILS % 62.9 % (39.0-77.0); PLATELET COUNT 264 10^3/UL (140-415); RED BLOOD COUNT 4.61 10^6/ul (4.20-5.40); RED CELL DISTRIBUTION WIDTH 14.3 % (11.5-14.5)
[2017-10-02 18:35] LABS: LACTIC ACID 1.7 mmol/L (0.5-2.0)
[2017-10-02 18:36] LABS: ALANINE AMINOTRANSFERASE 60 IU/L (13-69); ALBUMIN 3.8 g/dl (3.3-4.9); ALBUMIN/GLOBULIN RATIO 1.46; ALKALINE PHOSPHATASE 75 IU/L (42-121); ANION GAP 14 (8-16); ASPARTATE AMINO TRANSFERASE 62 IU/L (15-46); BILIRUBIN,INDIRECT 0.7 mg/dl (0-1.1); BILIRUBIN,TOTAL 0.7 mg/dl (0.2-1.3); BLOOD UREA NITROGEN 20 mg/dl (7-20); CALCIUM 8.9 mg/dl (8.4-10.2); CARBON DIOXIDE 30 mmol/L (21-31); CHLORIDE 94 mmol/L (97-110); CREATININE 0.94 mg/dl (0.44-1.00); GLUCOSE 107 mg/dl (70-220); LIPASE 123 U/L (23-300); POTASSIUM 5.9 mmol/L (3.5-5.1); SODIUM 132 mmol/L (135-144); TOTAL PROTEIN 6.4 g/dl (6.1-8.1)
[2017-10-02] MEDS: ONDANSETRON 4 MG INJ IV (19:01)
[2017-10-02] MEDS: SOD CHLORIDE 0.9% 1,000 ML IV (19:01)
[2017-10-02] MEDS: morphine 4 MG/ML VIAL IV (19:01)
[2017-10-02] MEDS ORDERED: ONDANSETRON 4 MG INJ IV (21:00)
[2017-10-02] MEDS ORDERED: ACETAMINOPHEN 325 MG TAB PO (21:00)
[2017-10-03] MEDS ORDERED: ONDANSETRON 4 MG INJ IV (01:00)
[2017-10-03] MEDS ORDERED: ACETAMINOPHEN 500 MG TAB PO (06:30)
[2017-10-03] MEDS ORDERED: DOCUSATE SODIUM 100 MG CAP PO (06:30)
[2017-10-03 07:22] LABS: ADD MAN DIFF? NO
[2017-10-03 07:27] LABS: BASOPHILS % 0.7 % (0.0-2.0); EOSINOPHILS % 0.5 % (0.0-7.0); HEMATOCRIT 41.3 % (37.0-47.0); HEMOGLOBIN 13.1 g/dl (12.0-16.0); LYMPHOCYTES # 1.5 10^3/ul (0.8-2.9); LYMPHOCYTES % 27.9 % (15.0-51.0); MEAN CORPUSCULAR HEMOGLOBIN 29.9 pg (29.0-33.0); MEAN CORPUSCULAR HGB CONC 31.7 g/dl (32.0-37.0); MEAN CORPUSCULAR VOLUME 94.3 fl (82.0-101.0); MEAN PLATELET VOLUME 9.7 fl (7.4-10.4); MONOCYTE # 0.8 10^3/ul (0.3-0.9); MONOCYTES % 14.8 % (0.0-11.0); NUCLEATED RED BLOOD CELLS% 0.4 /100WBC (0.0-0.0); PLATELET COUNT 242 10^3/UL (140-415); RED BLOOD COUNT 4.38 10^6/ul (4.20-5.40); RED CELL DISTRIBUTION WIDTH 14.2 % (11.5-14.5)
[2017-10-03 07:27] LABS: WHITE BLOOD COUNT 5.5 10^3/ul (4.8-10.8)
[2017-10-03 07:50] LABS: ALANINE AMINOTRANSFERASE 66 IU/L (13-69); ALBUMIN 3.4 g/dl (3.3-4.9); ALKALINE PHOSPHATASE 73 IU/L (42-121); ANION GAP 10 (8-16); ASPARTATE AMINO TRANSFERASE 71 IU/L (15-46); BILIRUBIN,INDIRECT 0.6 mg/dl (0-1.1); BILIRUBIN,TOTAL 0.6 mg/dl (0.2-1.3); BLOOD UREA NITROGEN 19 mg/dl (7-20); CALCIUM 8.3 mg/dl (8.4-10.2); CARBON DIOXIDE 29 mmol/L (21-31); CHLORIDE 100 mmol/L (97-110); CREATININE 0.83 mg/dl (0.44-1.00); GLUCOSE 86 mg/dl (70-220); MAGNESIUM 1.7 mg/dl (1.7-2.5); PHOSPHORUS 4.5 mg/dl (2.5-4.9); POTASSIUM 4.8 mmol/L (3.5-5.1); SODIUM 134 mmol/L (135-144)
[2017-10-03] MEDS: BENAZEPRIL 40 MG TAB PO (09:23)
[2017-10-03] MEDS: FUROSEMIDE 40 MG TAB PO (09:24)
[2017-10-03] MEDS: METOPROLOL 50 MG TAB PO ×2 (09:24→20:36)
[2017-10-03] MEDS: MAGNESIUM OXIDE 400 MG TAB PO (09:24)
[2017-10-03] MEDS: FUROSEMIDE 40 MG INJ IV ×2 (11:16→17:45)
[2017-10-03] MEDS: FLUTICASONE/VILANTEROL 200-25 INH DEVICE INH (12:36)
[2017-10-03] MEDS: SPIRONOLACTONE 50 MG TAB PO (17:43)
[2017-10-03 19:48] LABS: CARCINOEMBRYONIC ANTIGEN 2.6 ng/ml (0.0-5.0)
[2017-10-03 19:58] LABS: CANCER ANTIGEN 19-9 < 1.4 U/ml (0.0-37.0)
[2017-10-03] MEDS: MONTELUKAST 10 MG TAB PO (20:36)
[2017-10-04] MEDS: FUROSEMIDE 40 MG INJ IV ×2 (05:48→18:15)
[2017-10-04] MEDS: SPIRONOLACTONE 50 MG TAB PO ×2 (05:49→18:15)
[2017-10-04 08:12] LABS: ADD MAN DIFF? NO
[2017-10-04 08:16] LABS: WHITE BLOOD COUNT 5.2 10^3/ul (4.8-10.8)
[2017-10-04 08:16] LABS: BASOPHILS % 0.6 % (0.0-2.0); EOSINOPHILS # 0.2 10^3/ul (0.0-0.5); EOSINOPHILS % 2.9 % (0.0-7.0); HEMATOCRIT 41.8 % (37.0-47.0); HEMOGLOBIN 12.6 g/dl (12.0-16.0); LYMPHOCYTES # 1.2 10^3/ul (0.8-2.9); LYMPHOCYTES % 22.9 % (15.0-51.0); MEAN CORPUSCULAR HEMOGLOBIN 28.6 pg (29.0-33.0); MEAN CORPUSCULAR HGB CONC 30.1 g/dl (32.0-37.0); MEAN CORPUSCULAR VOLUME 94.8 fl (82.0-101.0); MONOCYTE # 0.8 10^3/ul (0.3-0.9); MONOCYTES % 14.4 % (0.0-11.0); NEUTROPHIL # 3.1 10^3/ul (1.6-7.5); NEUTROPHILS % 58.8 % (39.0-77.0); PLATELET COUNT 253 10^3/UL (140-415); RED BLOOD COUNT 4.41 10^6/ul (4.20-5.40); RED CELL DISTRIBUTION WIDTH 14.3 % (11.5-14.5)
[2017-10-04] MEDS: FLUTICASONE/VILANTEROL 200-25 INH DEVICE INH (08:18)
[2017-10-04] MEDS: MAGNESIUM OXIDE 400 MG TAB PO ×2 (08:18→21:09)
[2017-10-04] MEDS: METOPROLOL 50 MG TAB PO ×2 (08:19→21:10)
[2017-10-04] MEDS: BENAZEPRIL 40 MG TAB PO (08:19)
[2017-10-04 08:42] LABS: ANION GAP 12 (8-16); BLOOD UREA NITROGEN 22 mg/dl (7-20); CALCIUM 8.7 mg/dl (8.4-10.2); CARBON DIOXIDE 32 mmol/L (21-31); CHLORIDE 98 mmol/L (97-110); CREATININE 0.91 mg/dl (0.44-1.00); GLUCOSE 81 mg/dl (70-220); MAGNESIUM 1.6 mg/dl (1.7-2.5); POTASSIUM 4.1 mmol/L (3.5-5.1); SODIUM 138 mmol/L (135-144)
[2017-10-04 11:42] LABS: INR 1.25; PROTIME 15.9 Sec (11.9-14.9); PT RATIO 1.2
[2017-10-04 11:43] LABS: PARTIAL THROMBOPLASTIN TIME 27.9 Sec (25.0-35.0); THROMBIN TIME 14.4 SEC (13.8-19.1)
[2017-10-04 11:54] LABS: PLATELET COUNT 269 10^3/UL (140-415)
[2017-10-04] MEDS: MAGNESIUM SULFATE 3 GM in DEXTROSE 5% 100 ML IVPB (13:00)
[2017-10-04] MEDS: MONTELUKAST 10 MG TAB PO (21:09)
[2017-10-05] MEDS: HYDROCODONE/APAP (5/325) TAB PO (03:55)
[2017-10-05] MEDS: SPIRONOLACTONE 50 MG TAB PO (05:30)
[2017-10-05] MEDS: FUROSEMIDE 40 MG INJ IV (05:35)
[2017-10-05 08:11] LABS: ANION GAP 11 (8-16); BLOOD UREA NITROGEN 21 mg/dl (7-20); CALCIUM 8.9 mg/dl (8.4-10.2); CARBON DIOXIDE 37 mmol/L (21-31); CHLORIDE 95 mmol/L (97-110); CREATININE 0.86 mg/dl (0.44-1.00); GLUCOSE 96 mg/dl (70-220); SODIUM 139 mmol/L (135-144)
[2017-10-05] MEDS: FLUTICASONE/VILANTEROL 200-25 INH DEVICE INH (08:15)
[2017-10-05] MEDS: BENAZEPRIL 40 MG TAB PO (08:15)
[2017-10-05] MEDS: MAGNESIUM OXIDE 400 MG TAB PO (08:15)
[2017-10-05] MEDS: METOPROLOL 50 MG TAB PO (08:16)
[2017-10-05] MEDS ORDERED: APIXABAN 5 MG TABLET PO (21:00)
[2017-10-26 14:03] LABS: CANCER ANTIGEN 15-3 10 U/mL (<32)
== END 2017-10-05 13:31 | disposition home or self-care (01) | DRG 392 ==
LOC: MS4 20:45 → E/R 15:48 → MS4 20:45
DX: R10.11 Right upper quadrant pain (principal); I42.9 Cardiomyopathy, unspecified; R18.8 Other ascites; I48.2 Chronic atrial fibrillation; J45.909 Unspecified asthma, uncomplicated; K21.9 Gastro-esophageal reflux disease without esophagitis; R10.13 Epigastric pain; Z79.02 Long term (current) use of antithrombotics/antiplatelets; Z99.81 Dependence on supplemental oxygen
CPT/HCPCS: 36415; 72196; 74176; 76705; 80048; 80053; 82378; 83605; 83690; 83735; 84100; 84484; 85025; 85049; 85610; 85670; 85730; 86300; 86301; 86304; 93005; 96374; 96375; 99285-25

== ENCOUNTER 2017-11-25 06:18 | Observation (INO) | payer OTHER ==
[2017-11-25 06:43] LABS: ADD MAN DIFF? NO
[2017-11-25 06:45] LABS: BASOPHILS % 0.5 % (0.0-2.0); EOSINOPHILS # 0.1 10^3/ul (0.0-0.5); EOSINOPHILS % 0.8 % (0.0-7.0); HEMATOCRIT 44.5 % (37.0-47.0); HEMOGLOBIN 14.2 g/dl (12.0-16.0); LYMPHOCYTES # 1.5 10^3/ul (0.8-2.9); LYMPHOCYTES % 22.8 % (15.0-51.0); MEAN CORPUSCULAR HEMOGLOBIN 28.3 pg (29.0-33.0); MEAN CORPUSCULAR HGB CONC 31.9 g/dl (32.0-37.0); MEAN CORPUSCULAR VOLUME 88.8 fl (82.0-101.0); MEAN PLATELET VOLUME 8.9 fl (7.4-10.4); MONOCYTE # 1.1 10^3/ul (0.3-0.9); MONOCYTES % 16.1 % (0.0-11.0); NEUTROPHIL # 3.9 10^3/ul (1.6-7.5); NEUTROPHILS % 59.5 % (39.0-77.0); PLATELET COUNT 272 10^3/UL (140-415); RED BLOOD COUNT 5.01 10^6/ul (4.20-5.40); RED CELL DISTRIBUTION WIDTH 16.7 % (11.5-14.5)
[2017-11-25 06:45] LABS: WHITE BLOOD COUNT 6.6 10^3/ul (4.8-10.8)
[2017-11-25] MEDS: ONDANSETRON 4 MG INJ IV (06:46)
[2017-11-25] MEDS: morphine 2 MG INJ IV (06:46)
[2017-11-25 07:14] LABS: ALANINE AMINOTRANSFERASE 180 IU/L (13-69); ALBUMIN 3.9 g/dl (3.3-4.9); ALBUMIN/GLOBULIN RATIO 1.34; ALKALINE PHOSPHATASE 109 IU/L (42-121); ANION GAP 16 (8-16); ASPARTATE AMINO TRANSFERASE 141 IU/L (15-46); BILIRUBIN,INDIRECT 1.4 mg/dl (0-1.1); BILIRUBIN,TOTAL 1.4 mg/dl (0.2-1.3); BLOOD UREA NITROGEN 22 mg/dl (7-20); CALCIUM 9.2 mg/dl (8.4-10.2); CARBON DIOXIDE 28 mmol/L (21-31); CHLORIDE 97 mmol/L (97-110); CREATININE 0.83 mg/dl (0.44-1.00); GLUCOSE 94 mg/dl (70-220); LIPASE 222 U/L (23-300); POTASSIUM 4.5 mmol/L (3.5-5.1); SODIUM 136 mmol/L (135-144); TOTAL PROTEIN 6.8 g/dl (6.1-8.1)
[2017-11-25 07:22] LABS: LACTIC ACID 1.4 mmol/L (0.5-2.0)
[2017-11-25 07:26] LABS: TROPONIN-I 0.042 ng/ml (0.000-0.120)
[2017-11-25] MEDS ORDERED: ONDANSETRON 4 MG INJ IV (10:30)
[2017-11-25] MEDS ORDERED: NITROGLYCERIN (SL) 0.4 MG TAB SL (10:30)
[2017-11-25] MEDS ORDERED: NACL 0.9% 3 ML SYG IV (10:30)
[2017-11-25] MEDS ORDERED: DOCUSATE SODIUM 100 MG CAP PO (10:30)
[2017-11-25 11:43] LABS: CREATINE KINASE 35 IU/L (23-200)
[2017-11-25 11:52] LABS: B-TYPE NATRIURETIC PEPTIDE 15300 PG/ML (0-450)
[2017-11-25 11:55] LABS: CK INDEX 4.5; CK-MB 1.59 ng/ml (0.0-2.4); TROPONIN-I 0.032 ng/ml (0.000-0.120)
[2017-11-25] MEDS: IOHEXOL 100 ML (12:16)
[2017-11-25] MEDS: SOD CHLORIDE 0.9% 100 ML (12:16)
[2017-11-25] MEDS: FLUTICASONE/VILANTEROL 200-25 INH DEVICE INH (12:28)
[2017-11-25 16:03] LABS: CREATINE KINASE 36 IU/L (23-200)
[2017-11-25 16:15] LABS: CK INDEX 4.8; CK-MB 1.74 ng/ml (0.0-2.4); TROPONIN-I 0.029 ng/ml (0.000-0.120)
[2017-11-25] MEDS: FUROSEMIDE 40 MG INJ IV (17:24)
[2017-11-25] MEDS: SPIRONOLACTONE 50 MG TAB PO (17:24)
[2017-11-25] MEDS: APIXABAN 5 MG TABLET PO (20:59)
[2017-11-25] MEDS: METOPROLOL 100 MG TAB PO (20:59)
[2017-11-25] MEDS ORDERED: METOPROLOL 50 MG TAB PO (21:00)
[2017-11-25] MEDS: MONTELUKAST 10 MG TAB PO (21:00)
[2017-11-25] MEDS: FAMOTIDINE 20 MG TAB PO (21:00)
[2017-11-26] MEDS: FUROSEMIDE 40 MG INJ IV ×2 (06:09→16:51)
[2017-11-26] MEDS: SPIRONOLACTONE 50 MG TAB PO ×2 (06:09→16:52)
[2017-11-26 07:57] LABS: ADD MAN DIFF? NO
[2017-11-26 08:01] LABS: BASOPHILS % 0.4 % (0.0-2.0); EOSINOPHILS # 0.1 10^3/ul (0.0-0.5); EOSINOPHILS % 1.1 % (0.0-7.0); HEMATOCRIT 45.8 % (37.0-47.0); MEAN CORPUSCULAR HEMOGLOBIN 28.6 pg (29.0-33.0); MEAN CORPUSCULAR HGB CONC 30.6 g/dl (32.0-37.0); MEAN CORPUSCULAR VOLUME 93.7 fl (82.0-101.0); MEAN PLATELET VOLUME 9.2 fl (7.4-10.4); MONOCYTE # 0.8 10^3/ul (0.3-0.9); MONOCYTES % 14.8 % (0.0-11.0); NEUTROPHIL # 3.4 10^3/ul (1.6-7.5); NEUTROPHILS % 64.3 % (39.0-77.0); PLATELET COUNT 269 10^3/UL (140-415); RED BLOOD COUNT 4.89 10^6/ul (4.20-5.40); RED CELL DISTRIBUTION WIDTH 16.6 % (11.5-14.5)
[2017-11-26 08:01] LABS: WHITE BLOOD COUNT 5.2 10^3/ul (4.8-10.8)
[2017-11-26] MEDS: BENAZEPRIL 20 MG TAB PO (08:16)
[2017-11-26] MEDS: FLUTICASONE/VILANTEROL 200-25 INH DEVICE INH (08:18)
[2017-11-26] MEDS: METOPROLOL 100 MG TAB PO ×2 (08:18→20:34)
[2017-11-26] MEDS: APIXABAN 5 MG TABLET PO ×2 (08:18→20:34)
[2017-11-26 08:30] LABS: INR 1.39; PROTIME 17.3 Sec (11.9-14.9); PT RATIO 1.4
[2017-11-26 08:50] LABS: HEMOGLOBIN A1C 6.2 % (0-5.9)
[2017-11-26 08:56] LABS: ANION GAP 14 (8-16); BLOOD UREA NITROGEN 21 mg/dl (7-20); CALCIUM 9.2 mg/dl (8.4-10.2); CARBON DIOXIDE 35 mmol/L (21-31); CHLORIDE 94 mmol/L (97-110); CHOL/HDL RATIO 2.4 RATIO; CHOLESTEROL 96 mg/dl (100-200); CREATININE 0.93 mg/dl (0.44-1.00); GLUCOSE 94 mg/dl (70-220); HDL CHOLESTEROL 40 mg/dl (33-92); LDL CHOLESTEROL,CALCULATED 45 mg/dl; MAGNESIUM 1.9 mg/dl (1.7-2.5); PHOSPHORUS 4.4 mg/dl (2.5-4.9); POTASSIUM 4.4 mmol/L (3.5-5.1); SODIUM 139 mmol/L (135-144); TRIGLYCERIDES 57 mg/dl (0-149)
[2017-11-26] MEDS ORDERED: FUROSEMIDE 40 MG TAB PO (09:00)
[2017-11-26] MEDS ORDERED: BENAZEPRIL 40 MG TAB PO (09:00)
[2017-11-26] MEDS: HYDROCODONE/APAP (5/325) TAB PO (11:27)
[2017-11-26] MEDS: ACETAMINOPHEN 325 MG TAB PO (16:51)
[2017-11-26] MEDS: MONTELUKAST 10 MG TAB PO (20:33)
[2017-11-26] MEDS: FAMOTIDINE 20 MG TAB PO (20:33)
[2017-11-27] MEDS: SPIRONOLACTONE 50 MG TAB PO ×2 (06:00→17:09)
[2017-11-27] MEDS: FUROSEMIDE 40 MG INJ IV ×2 (06:00→17:09)
[2017-11-27] MEDS: FLUTICASONE/VILANTEROL 200-25 INH DEVICE INH (08:53)
[2017-11-27] MEDS: METOPROLOL 100 MG TAB PO ×2 (08:53→20:38)
[2017-11-27] MEDS: APIXABAN 5 MG TABLET PO ×2 (08:53→20:32)
[2017-11-27] MEDS: BENAZEPRIL 20 MG TAB PO (08:54)
[2017-11-27] MEDS: MONTELUKAST 10 MG TAB PO (20:31)
[2017-11-27] MEDS: FAMOTIDINE 20 MG TAB PO (20:31)
[2017-11-28] MEDS: SPIRONOLACTONE 50 MG TAB PO (06:46)
[2017-11-28 06:55] LABS: ADD MAN DIFF? NO
[2017-11-28 07:00] LABS: BASOPHILS % 0.6 % (0.0-2.0); EOSINOPHILS # 0.1 10^3/ul (0.0-0.5); EOSINOPHILS % 2.1 % (0.0-7.0); HEMATOCRIT 40.7 % (37.0-47.0); LYMPHOCYTES # 1.1 10^3/ul (0.8-2.9); LYMPHOCYTES % 23.7 % (15.0-51.0); MEAN CORPUSCULAR HEMOGLOBIN 29.1 pg (29.0-33.0); MEAN CORPUSCULAR HGB CONC 31.9 g/dl (32.0-37.0); MEAN CORPUSCULAR VOLUME 91.3 fl (82.0-101.0); MEAN PLATELET VOLUME 9.3 fl (7.4-10.4); MONOCYTE # 0.7 10^3/ul (0.3-0.9); NEUTROPHIL # 2.7 10^3/ul (1.6-7.5); NEUTROPHILS % 58.2 % (39.0-77.0); PLATELET COUNT 257 10^3/UL (140-415); RED BLOOD COUNT 4.46 10^6/ul (4.20-5.40); RED CELL DISTRIBUTION WIDTH 15.9 % (11.5-14.5)
[2017-11-28 07:00] LABS: WHITE BLOOD COUNT 4.7 10^3/ul (4.8-10.8)
[2017-11-28 07:34] LABS: ANION GAP 11 (8-16); BLOOD UREA NITROGEN 32 mg/dl (7-20); CALCIUM 8.7 mg/dl (8.4-10.2); CARBON DIOXIDE 38 mmol/L (21-31); CHLORIDE 93 mmol/L (97-110); CREATININE 0.92 mg/dl (0.44-1.00); GLUCOSE 87 mg/dl (70-220); MAGNESIUM 1.7 mg/dl (1.7-2.5); POTASSIUM 4.5 mmol/L (3.5-5.1); SODIUM 137 mmol/L (135-144)
[2017-11-28] MEDS: FLUTICASONE/VILANTEROL 200-25 INH DEVICE INH (08:26)
[2017-11-28] MEDS: BUMETANIDE 1 MG TAB PO (08:26)
[2017-11-28] MEDS: APIXABAN 5 MG TABLET PO (08:27)
[2017-11-28] MEDS: BENAZEPRIL 20 MG TAB PO (08:27)
[2017-11-28] MEDS: METOPROLOL 100 MG TAB PO (08:28)
== END 2017-11-28 15:00 | disposition home or self-care (01) ==
LOC: E/R 06:18 → TEL 07:42
PROVIDERS: Internal Medicine
DX: I11.0 Hypertensive heart disease with heart failure (principal); I50.23 Acute on chronic systolic (congestive) heart failure; R07.9 Chest pain, unspecified; J45.909 Unspecified asthma, uncomplicated; J90 Pleural effusion, not elsewhere classified; I48.2 Chronic atrial fibrillation; K74.60 Unspecified cirrhosis of liver; R18.8 Other ascites; I42.9 Cardiomyopathy, unspecified; N94.9 Unspecified condition associated with female genital organs and menstrual cycle
CPT/HCPCS: 36415; 71045; 71275; 76604; 76705; 80048; 80053; 80061; 82550; 82553; 83036; 83605; 83690; 83735; 83880; 84100; 84443; 84484; 85025; 85610; 85730; 87040; 93005; 96374; 96375; 99285-25; G0378